=== PATIENT | male | born 1995 | race Caucasian/White ===

== ENCOUNTER 2018-08-22 18:34 | Emergency (ER) | payer BC ==
[2018-08-22] MEDS ORDERED: TDAP ADULT 0.5 ML INJ (BOOSTRIX) IM ONE (20:24)
--- NOTE | 2018-08-22 20:24 | EDPHY ---
H & P Time Seen by Provider: 08/22/18 19:24 HPI/ROS: Chief complaint: Right ring finger laceration History of present illness: This is a 23-year-old male who presents to the emergency department after cutting his right ring finger with a knife just prior to arrival. He reports pain, bleeding. Bleeding controlled with application of a dressing. He denies abnormal coolness or paresthesias in the finger. He can still move the finger well. He is unsure of when he received his last tetanus shot. No other complaints. Smoking Status: Never smoked Physical Exam: General: Alert, nontoxic. Skin: 0.5 cm laceration to the tip of the right ring finger. No foreign bodies or deep structures involvement. Musculoskeletal: He is flexing and extending the right ring finger in the DIP, PIP and MCP joint well. Vascular: Capillary refill brisk in the finger. Neurologic: Light touch and two-point discrimination intact Constitutional: Initial Vital Signs Temperature (C) 36.7 C 08/22/18 18:40 Respiratory Rate 16 08/22/18 18:40 Blood Pressure 100/64 08/22/18 18:40 O2 Sat (%) 97 08/22/18 18:40 O2 Delivery Mode Room Air Allergies/Adverse Reactions: No Known Allergies Allergy (Unverified 08/22/18 18:40) Home Medications: Medication Instructions Recorded NK [No Known Home Meds] 08/22/18 MDM/Departure - MDM Procedures: Procedure: Laceration repair. Verbal consent was obtained from the patient. The 0.5 cm laceration on the right ring finger was anesthetized in the usual fashion. The wound was irrigated , draped and explored to its base with a gloved finger. There were no deep structures involved. No tendon injury was identified. The wound was repaired with 5 0 Prolene, 2 simple interrupted sutures. The wound repair was simple. The procedure was performed by myself. Medications Given: Discontinued Medications Diphtheria/Tetanus/Acell Pertussis (Boostrix) 0.5 ml IM .ONCE ONE Stop: 08/22/18 20:25 Last Admin: 08/22/18 20:31 Dose: 0.5 ml Ibuprofen (Motrin) 800 mg PO EDNOW ONE Stop: 08/22/18 20:26 Last Admin: 08/22/18 20:31 Dose: 800 mg ED Course/Re-evaluation: Patient seen under the supervision of my secondary supervising physician Dr. Augusto Farooq. Patient presents for right ring finger laceration. The finger is neurovascularly intact. He has good musculoskeletal control. The wound is cleaned, repaired and dressed. His tetanus is updated. Home care is discussed. Return precautions are given. He is to follow up with his primary care doctor for recheck. Patient voiced understanding and agreement with plan. - Depart Disposition: Home, Routine, Self-Care Clinical Impression: Finger laceration Qualifiers: Encounter type: initial encounter Finger: ring finger Damage to nail status: without damage Foreign body presence: without foreign body Laterality: right Qualified Code(s): S61.214A - Laceration without foreign body of right ring finger without damage to nail, initial encounter Condition: Good Instructions: Care For Your Stitches (ED), Laceration (ED), Acute Wounds (ED) Additional Instructions: Follow-up with a primary care doctor for recheck Stitches to be removed in approximately 7 days If symptoms worsen or new symptoms develop return to the emergency room for recheck Referrals: NONE *PRIMARY CARE P,. [Primary Care Provider] - As per Instructions [facility],. [Clinic] - As per Instructions
[2018-08-22] MEDS ORDERED: IBUPROFEN 800 MG TAB PO ONE (20:25)
[2018-08-22 20:44] VITALS: BP 127/90
== END 2018-08-22 20:43 | disposition home or self-care (01) ==
PROC: 0HQFXZZ Repair Right Hand Skin, External Approach (ICD-10-PCS; principal; 2018-08-22)
DX: S61.214A Laceration without foreign body of right ring finger without damage to nail, initial encounter (principal); W26.0XXA Contact with knife, initial encounter; Y93.9 Activity, unspecified; Y92.9 Unspecified place or not applicable